=== PATIENT | male | born 1970 | race African-American/Black ===

== ENCOUNTER 2023-04-16 15:12 | Outpatient (CLI) | payer OTHER ==
--- NOTE | 2023-04-16 15:41 | Sleep Patient Instructions ---
Sleep Center Visit Summary - Patient Visit Information Reason for Visit: Compliance visit for new device, CPAP therapy - Patient Instructions Additional Instructions: You were here for follow up of CPAP therapy. You will be continued on CPAP therapy with pressure at 5-15 cmH2O. You should follow up with sleep care in 12 months. You may contact us sooner for any questions or concerns. - Clinic Information Contact: [facility] [address] [place] [id number] [email or web address] T: [phone]
--- NOTE | 2023-04-16 15:46 | SLEEP CARE CONSULTATION ---
Information from patient questionnaire entered by Estefani Shen. I have reviewed and concur with the information entered by Estefani Shen. This document represents the service I personally performed and the decisions made by me, Zoe Champion ARNP. History of Present Illness Service Date and Time: 04/16/2023 1512 Previous diagnosis: Mild, Obstructive Sleep Apnea-Hypopnea Syndrome AHI: 9.4 (in 2017) Reason for follow up: first compliance after device update Equipment type: CPAP (Resmed Airsense 11) Equipment obtained from: Other ([employer], getting supplies) Mask style: Nasal Mask brand: Resmed (Airfit [id number]) Backup mask available: Yes (old mask) Prior sleep studies: Yes Year and Where: February 2017 [place], [place] Type of Sleep Study: Home sleep study HPI additional information: BONNIE IRAHETA was diagnosed to have mild, AHI 9.4, obstructive sleep apnea-hypopnea syndrome and returned today for CPAP therapy first compliance after updating device follow-up. Sleep Study - Results Type of Sleep Study: Home sleep study Prior sleep studies: Yes Year and Where: February 2017 [place], [place] CPAP Compliance Data - Data Reviewed with Patient Average duration of nightly device use: 5 hours 18 minutes Compliance rate %: 92 (59/61 days used) Current pressure setting (cmH2O): 5-15 Average residual AHI: 1.3 Central apnea: 0.2 Obstructive apnea: 0.3 Average large leak: 12.8 L/min Subjective Missed days of use due to: reports: travel Patient concerns: reports: air blowing in eyes, mask leak noise (when needs to be changed). denies: aerophagia, mask discomfort, condensation in mask/hose, nasal congestion, dry mouth, nose, throat, epistaxis Observed to snore while using device: No Current pressure setting perceived as: comfortable On therapy, patient: reports: sleeping better, awakening more refreshed, being more awake and alert during the day, more rested overall. denies: drowsiness while driving Initial Lincoln Sleepiness Scale score: 17 (05/21/2022) Current Lincoln Sleepiness Scale score: 13 (04/16/23) Allergies and Home Medications Known drug allergies: No Drug allergies reviewed: Yes Home medication list reviewed: Yes (anxiety med (unknown name); Tums/Pepcid for reflux) Review of Systems Review of systems same as previous: Yes (Colonoscopy schdld 23 April) Physical Exam Vital signs obtained and entered by: ESTEFANI Palomino MA Blood Pressure: 130/90 (LEFT ARM) Cuff size: regular Heart Rate: 70 O2 Saturation: 96 Height: 5 ft 9 in Weight: 211 lb 9.6 oz Body Mass Index: 31.2 BMI Classification: Obese Impression and Plan 1. Obstructive Sleep Apnea-Hypopnea Syndrome, mild, with good treatment compliance and good apnea control. On CPAP therapy, the patient has better sleep quality and is more rested overall. Patient is happy with new Airsense 11. He has good compliance. Patient has significant improvement of their sleep apnea and is satisfied with current CPAP therapy. He has has some mask air leaks and air leaking in his eyes but he states that is just when he needs to change his mask cushion. He has no other issues. Patient's apnea severity and rationale for treatment to reduce apnea, improve sleep quality and reduce cardiovascular and cerebrovascular events was reviewed. I also reviewed the benefit of consistent device use of CPAP for hypertension, gastric reflux, depression and anxiety. 2. Obesity, unspecified. Currently patients BMI is 31.2. Obesity increases the risk of apnea, CPAP pressure requirements and overall health risks especially cardiovascular and diabetes. Thus patient is advised to lose weight. * Continue auto CPAP pressure at 5-15 cmH2O * Notify me if snoring with mask or feeling that the pressure is too much or too little * Attempt to lose weight * Call this office if any problems using CPAP * Return for follow up in 1 year, or sooner if concerns arise Counseling Topics: Spare mask, Weight loss health impact Visit Type: In Office Time Spent with Patient (minutes): 24 Provider Statement: I spent 100% of the Face to Face Visit with the patient with greater than 50% spent counseling the patient and coordination of care.
[2023-04-16 15:48] VITALS: BP 130/90
== END 2023-04-16 15:13 | disposition home or self-care (01) ==
LOC: SC 15:12
PROVIDERS: ATTEND Nurse Practitioner Family
DX: G47.33 Obstructive sleep apnea (adult) (pediatric) (principal); E66.9 Obesity, unspecified; Z68.31 Body mass index [BMI] 31.0-31.9, adult
CPT/HCPCS: 99212; 99213

== ENCOUNTER 2023-10-21 16:54 | Outpatient (CLI) | payer OTHER ==
--- NOTE | 2023-10-22 10:50 | MRI Report ---
PROCEDURE: KNEE WO - RT INDICATIONS: PAIN IN RIGHT KNEE TECHNIQUE: Noncontrast sagittal PD fast spin echo and T2 fast spin echo with fat saturation, sagittal 3-D spoile d GE with fat saturation; coronal T1 spin echo and PD fast spin echo with fat saturation, and axial P D fast spin echo with fat saturation through the knee. COMPARISON: None. FINDINGS: Image quality: Excellent. Anterior cruciate ligament: Intact. Posterior cruciate ligament: Intact. Medial collateral ligament: There is mild edema surrounding the proximal medial collateral ligament and the ligament appears mildly thickened. Lateral collateral ligament: Intact. Medial meniscus: Focal complex tearing of the medial meniscus is seen at the junction of the posteri or horn and body with a shallow radial component and a horizontal oblique component extending to the inner third tibial articular surface as well as a small meniscal flap extending into the medial tibia l gutter. Lateral meniscus: Intact. Medial and lateral tendons: The semimembranosus tendon insertions appear intact. Visualized portion s of the pes anserinus tendons appear normal. The popliteus tendon appears intact. Iliotibial band appears normal. Anterior structures: The patellar tendon and the distal quadriceps tendon appear intact. No patellar subluxation. No femoral trochlear dysplasia or ventral trochlear prominence. No edema in the infra patellar fat pad. Bones: Mild osseous edema at the medial tibial plateau is most likely reactive to the adjacent menis jordin tear versus less likely an osseous contusion or secondary to degenerative changes. Medial femorotibial cartilage: Mild partial thickness cartilage cartilage thinning in the weightbear ing portion of the medial femorotibial compartment. Mild subchondral edema is seen posteriorly. Small marginal osteophytes. Lateral femorotibial cartilage: Mild surface cartilage irregularity and small marginal osteophytes. Patellofemoral cartilage: Full-thickness cartilage loss is seen at the lateral patellar facet with m ild subchondral edema and small marginal osteophytes. There is high-grade cartilage loss at the troch lear groove/lateral femoral trochlea. Soft tissues: There is a small joint effusion. A 3 mm intra-articular loose body is seen posterior i ntercondylar notch. A thin lobular ganglion cyst is seen extending proximally from the posterior medi al joint capsule measuring approximately 4.5 x 1.2 x 1.2 cm, there is a superior extension of the sma ll medial popliteal cyst.. The musculature surrounding the knee is normal in bulk. IMPRESSION: 1.Complex tearing of the medial meniscus at the junction of the posterior horn and body with shallow radial and horizontal oblique components as well as a small inferiorly displaced meniscal flap extend ing into the medial tibial gutter. Mild adjacent osseous edema is most likely reactive. 2.Grade 1 sprain of the proximal medial collateral ligament. 3.Full-thickness cartilage loss at the anterior compartment at the lateral patellar facet. There is m ild grade II chondromalacia in the medial and lateral femorotibial compartments. 4.Small joint effusion with a 3 mm intra-articular loose body posteriorly. 5.Small medial popliteal cyst. Lobular ganglion cyst is seen along the posterior medial aspect of the vastus medialis muscle adjacent to the adductor jose insertion versus superior extension of the me dial popliteal cyst. Reviewed by: Domenico Byrd MD on 10/22/2023 10:48 AM PST Approved by: Domenico Byrd MD on 10/22/2023 10:48 AM PST Station ID: [id number]
== END 2023-10-21 16:55 | disposition home or self-care (01) ==
LOC: DI 16:54
PROVIDERS: ATTEND Family Medicine
DX: S83.231A Complex tear of medial meniscus, current injury, right knee, initial encounter (principal); S83.411A Sprain of medial collateral ligament of right knee, initial encounter; M94.261 Chondromalacia, right knee; M25.461 Effusion, right knee; M71.21 Synovial cyst of popliteal space [Baker], right knee

== ENCOUNTER 2024-04-01 15:24 | Emergency (ER) | payer OTHER ==
--- NOTE | 2024-04-01 15:34 | ED Physician Documentation ---
PD HPI BACK PAIN - Stated complaint Stated Complaint: BACK PX - Chief complaint Chief Complaint: Back Pain - Additional information Additional information: 54-year-old male with history of hypertension, urinary retention, anxiety presents emergency department for lower back pain. Patient says that he woke last night with sudden onset lower back pain mostly to the right flank area. He also reports that he is been having some fevers and chills at home unsure how high his fever has been. No difficulty voiding no diarrhea no nausea at this time but he said that he was having a couple episodes of nausea no emesis at home. No recent injury or falls to cause the back pain. PD PAST MEDICAL HISTORY - Past Medical History Past Medical History: Yes Cardiovascular: Hypertension Psych: Anxiety - Past Surgical History Past Surgical History: Yes Ortho: Other HEENT: Other - Present Medications Home Medications: Ambulatory Orders Medication Instructions Recorded Confirmed Calcium Carbonate [Tums (Calcium See Rx Instructions .ROUTE .COMPLEX 04/16/23 04/01/24 Carbonate 500mg)] Famotidine [Pepcid AC] See Rx Instructions .ROUTE .COMPLEX 04/16/23 04/16/23 Lisinopril [Zestril] 1 tab PO DAILY 04/01/24 04/01/24 Omeprazole 1 tab PO PRN PRN 04/01/24 04/01/24 Sildenafil Citrate 1 tab PO DAILY 04/01/24 04/01/24 - Allergies Allergies/Adverse Reactions: Allergies Allergy/AdvReac Type Severity Reaction Status Date / Time No Known Drug Allergies Allergy Verified 04/01/24 15:26 - Social History Does the pt smoke?: No Smoking Status: Never smoker Does the pt drink ETOH?: No Does the pt have substance abuse?: No - Immunizations Immunizations are current?: Yes - POLST Patient has POLST: No PD ED PE NORMAL - Vitals Vital signs reviewed: Yes - General General: Alert and oriented X 3, No acute distress, Well developed/nourished - Neck Neck: No bony TTP - Cardiac Cardiac: RRR, No murmur, No gallop, Strong equal pulses - Respiratory Respiratory: No respiratory distress, Clear bilaterally - Abdomen Abdomen: Normal bowel sounds, Soft, Non tender - Back Back: No CVA TTP - Free text exam Free text exam: Neck and back are without deformity, external skin changes, or signs of trauma. Curvature of the cervical, thoracic, and lumbar spine are within normal limits. Bony features of the shoulders and hips are of equal height bilaterally. Posture is upright, gait is smooth, steady, and within normal limits. No tenderness noted on palpation of the spinous processes. Spinous processes are midline. Cervical, thoracic, and lumbar paraspinal muscles are not tender and are without spasm. No discomfort is noted with flexion, extension, and [id number] rotation of the cervical spine, full range of motion is noted. Full range of motion including flexion, extension, and [id number] rotation of the thoracic and lumbar spine are noted and without discomfort. Straight leg raise test is negative bilaterally. Sensation to the upper and lower extremities is normal bilaterally. No clonus is noted. Appeals Referee strength is normal bilaterally. Dorsi/plantar flexion is normal bilaterally. Results - Vitals Vitals: Vital Signs - 24 hr 04/01/24 04/01/24 15:26 19:02 Temperature 37.1 C Heart Rate 90 74 Respiratory 16 16 Rate Blood Pressure 160/80 H 174/101 H O2 Saturation 98 100 Oxygen O2 Source Room air - Labs Labs: Laboratory Tests 04/01/24 04/01/24 04/01/24 15:35 15:35 15:53 WBC 4.1 L RBC 4.81 Hgb 13.3 L Hct 39.9 L MCV 83.0 MCH 27.7 MCHC 33.3 RDW 12.6 Plt Count 127 L MPV 11.6 H Neut # (Auto) 3.0 Lymph # (Auto) 0.6 L Newberry # (Auto) 0.5 Eos # (Auto) 0.0 Baso # (Auto) 0.0 Absolute Nucleated RBC 0.00 Nucleated RBC % 0.0 Sodium Potassium Chloride Carbon Dioxide Anion Gap BUN Creatinine Estimated GFR (MDRD) Glucose Calcium Magnesium Total Bilirubin AST ALT Alkaline Phosphatase Total Protein Albumin Globulin Albumin/Globulin Ratio Lipase Urine Color YELLOW Urine Clarity CLEAR Urine pH 7.5 Ur Specific Mcrae 1.020 Urine Protein NEGATIVE Urine Glucose (UA) NEGATIVE Urine Ketones NEGATIVE Urine Occult Blood NEGATIVE Urine Nitrite NEGATIVE Urine Bilirubin NEGATIVE Urine Urobilinogen 0.2 (NORMAL) Ur Leukocyte Esterase NEGATIVE Ur Microscopic Review NOT INDICATED Urine Culture Comments NOT INDICATED Nasal Adenovirus (PCR) NOT DETECTED Nasal B. parapertussis DNA (PCR) NOT DETECTED Nasal Coronavir 229E PCR NOT DETECTED Nasal Coronavir HKU1 PCR NOT DETECTED Nasal Coronavir NL63 PCR NOT DETECTED Nasal Coronavir OC43 PCR NOT DETECTED Nasal Enterovir/Rhinovir PCR NOT DETECTED Nasal Influenza B PCR NOT DETECTED Nasal Influenza A PCR NOT DETECTED Nasal Parainfluen 1 PCR NOT DETECTED Nasal Parainfluen 2 PCR NOT DETECTED Nasal Parainfluen 3 PCR NOT DETECTED Nasal Parainfluen 4 PCR NOT DETECTED Nasal RSV (PCR) NOT DETECTED Nasal B.pertussis DNA PCR NOT DETECTED Nasal C.pneumoniae (PCR) NOT DETECTED Roosevelt Human Metapneumo PCR NOT DETECTED Nasal M.pneumoniae (PCR) NOT DETECTED Nasal SARS-CoV-2 (PCR) DETECTED A 04/01/24 15:53 WBC RBC Hgb Hct MCV MCH MCHC RDW Plt Count MPV Neut # (Auto) Lymph # (Auto) Newberry # (Auto) Eos # (Auto) Baso # (Auto) Absolute Nucleated RBC Nucleated RBC % Sodium 137 Potassium 3.7 Chloride 101 Carbon Dioxide 31 Anion Gap 5.0 L BUN 11 Creatinine 1.0 Estimated GFR (MDRD) 94 Glucose 106 H Calcium 9.5 Magnesium 1.6 L Total Bilirubin 0.5 AST 56 H ALT 42 Alkaline Phosphatase 60 Total Protein 7.1 Albumin 4.5 Globulin 2.6 Albumin/Globulin Ratio 1.7 Lipase 54 Urine Color Urine Clarity Urine pH Ur Specific Mcrae Urine Protein Urine Glucose (UA) Urine Ketones Urine Occult Blood Urine Nitrite Urine Bilirubin Urine Urobilinogen Ur Leukocyte Esterase Ur Microscopic Review Urine Culture Comments Nasal Adenovirus (PCR) Nasal B. parapertussis DNA (PCR) Nasal Coronavir 229E PCR Nasal Coronavir HKU1 PCR Nasal Coronavir NL63 PCR Nasal Coronavir OC43 PCR Nasal Enterovir/Rhinovir PCR Nasal Influenza B PCR Nasal Influenza A PCR Nasal Parainfluen 1 PCR Nasal Parainfluen 2 PCR Nasal Parainfluen 3 PCR Nasal Parainfluen 4 PCR Nasal RSV (PCR) Nasal B.pertussis DNA PCR Nasal C.pneumoniae (PCR) Roosevelt Human Metapneumo PCR Nasal M.pneumoniae (PCR) Nasal SARS-CoV-2 (PCR) - Rads (name of study) CT KUB Relevant Findings:: Final report received, EMP independent interpretation of test, Other (No hydronephrosis or obstructing renal stone distended bladder) PD Medical Decision Making - ED course ED course: 54-year-old male presents emergency room for right flank pain. Labs are complete for further evaluation as I was originally concerned about some sort of kidney obstruction or kidney failure. Mild leukopenia 4.1 hemoglobin 13.3, no electrolyte abnormalities urinalysis is unremarkable CT scan does not show any hydronephrosis or obstruction it does show distended bladder but patient says that he is chronically distended and has urinary retention. He also tested positive for COVID-19 which is why I believe patient is experiencing fevers chills and bodyaches. No further workup indicated at this time Tylenol given for pain IV fluids given and told to follow-up with primary care provider as needed a urology referral was also given for the patient to help with his urinary retention. Return precautions given patient safe for discharge. Departure - Departure Disposition: Home, Self Care Clinical Impression: COVID-19, Urinary retention Instructions: COVID-19 [facility] Department Statement, Flu and Cold: Nutrition, Prevention and Treatment Tips Follow-Up: Tim Munson MD [Provider Admit Priv/Credential] - Comments: Thank you for trusting us with your care. We have found that you have tested positive for COVID-19. Go home get plenty of rest drink lots of fluids Tylenol ibuprofen for pain and discomfort wear a mask if you are out in public for at least 7 days. Please come back to the emergency department if you are having any worsening symptoms, shortness of breath, chest pain or any other concerning emergent symptoms. Incidentally we have found that your CT scan shows quite enlarged bladder I think that you need to follow-up with your primary care provider for urology referral as soon as possible for further evaluation of your urinary retention. I have included the urologist contact information who is here on the [place] please call him first thing Wednesday morning to make an appointment. Discharge Date/Time: 04/01/24 19:03
[2024-04-01 15:51] LABS: BILIRUBIN,URINE NEGATIVE (NEGATIVE); GLUCOSE, URINE (UA) NEGATIVE (NEGATIVE); KETONES,URINE (UA) NEGATIVE (NEGATIVE); LEUKOCYTE ESTERASE, URINE NEGATIVE (NEGATIVE); NITRITE,URINE NEGATIVE (NEGATIVE); OCCULT BLOOD,URINE NEGATIVE (NEGATIVE); PH,URINE 7.5 PH (5.0-7.5); PROTEIN,URINE NEGATIVE (NEGATIVE); UROBILINOGEN,URINE 0.2 (NORMAL) E.U./dL (NORMAL)
[2024-04-01 15:52] LABS: CLARITY,URINE CLEAR (CLEAR)
[2024-04-01 16:05] LABS: HCT - HEMATOCRIT 39.9 % (42.0-52.0); HGB - HEMOGLOBIN 13.3 g/dL (14.0-18.0); LYMPHOCYTES # (AUTO) 0.6 10^3/uL (1.5-3.5); LYMPHOCYTES % (AUTO) 13.8 %; MEAN CORPUSCULAR HEMOGLOBIN 27.7 pg (27.0-31.0); MEAN CORPUSCULAR HGB CONC 33.3 g/dL (32.0-36.0); MEAN PLATELET VOLUME 11.6 fL (7.4-11.4); MONOCYTES # (AUTO) 0.5 10^3/uL (0.0-1.0); MONOCYTES % (AUTO) 12.8 %; NEUTROPHILS % (AUTO) 73.2 %; PLT - PLATELET COUNT 127 10^3/uL (130-450); RED BLOOD COUNT 4.81 10^6/uL (4.70-6.10); RED CELL DISTRIBUTION WIDTH 12.6 % (12.0-15.0); WHITE BLOOD COUNT 4.1 x10^3/uL (4.8-10.8)
[2024-04-01 16:21] LABS: ALBUMIN 4.5 g/dL (3.2-5.5); ALBUMIN/GLOBULIN RATIO 1.7 (1.0-2.2); BILIRUBIN,TOTAL 0.5 mg/dL (0.2-1.0); CALCIUM 9.5 mg/dL (8.5-10.3); MAGNESIUM 1.6 mg/dL (1.7-2.3); POTASSIUM 3.7 mmol/L (3.5-4.5); TOTAL PROTEIN 7.1 g/dL (6.4-8.9)
[2024-04-01] MEDS: KETOROLAC 30 MG/ML VIAL IVP STA (16:43)
[2024-04-01] MEDS: SODIUM CHLORIDE 0.9% 1,000 ML IV ONE (16:48)
[2024-04-01 17:27] LABS: B. PARAPERTUSSIS- RESP PCR PAN NOT DETECTED; B. PERTUSSIS- RESP PCR PANEL NOT DETECTED; C. PNEUMONIAE- RESP PCR PANEL NOT DETECTED; CORONAVIRUS 229E-RESP PCR NOT DETECTED; CORONAVIRUS HKU1-RESP PCR NOT DETECTED; CORONAVIRUS NL63-RESP PCR NOT DETECTED; CORONAVIRUS OC43-RESP PCR NOT DETECTED; HUMAN METAPNEUMOVIRUS NOT DETECTED; INFLUENZA A- RESP PCR PANEL NOT DETECTED; INFLUENZA B - RESP PCR PANEL NOT DETECTED; M. PNEUMONIAE- RESP PCR PANEL NOT DETECTED; PARAINFLUENZA VIRUS 1 NOT DETECTED; PARAINFLUENZA VIRUS 2 NOT DETECTED; PARAINFLUENZA VIRUS 3 NOT DETECTED; PARAINFLUENZA VIRUS 4 NOT DETECTED; RHINOVIRUS/ENTEROVIRUS NOT DETECTED; RSV- RESP PCR PANEL NOT DETECTED
[2024-04-01 17:29] LABS: SARS-CoV-2 -RESP PCR PANEL DETECTED
--- NOTE | 2024-04-01 18:12 | CT Report ---
PROCEDURE: KUB INDICATIONS: right flank pain TECHNIQUE: A CT scan of the abdomen and pelvis was performed without the use of intravenous contrast. Images we re recorded and evaluated at appropriate window settings. Reformats: coronal and sagittal. For radiat ion dose reduction, the following was used: automated exposure control, adjustment of mA and/or kV ac cording to patient size. COMPARISON: None. FINDINGS: Image quality: Diagnostic. Lower chest: A small hiatal hernia is incidentally noted. Liver: No contour-deforming mass. Gallbladder: Within normal limits. Biliary tree: No intrahepatic or extrahepatic dilation, accounting for age. Spleen: No splenomegaly. Pancreas: No pancreatic ductal dilation. Adrenals: No adrenal nodule. Kidneys and ureters: No hydronephrosis. No contour-deforming mass. Stomach, bowel and peritoneum: No gastric or small bowel dilation. No abnormal wall thickening. No pa thologic free fluid. A normal appendix is seen. Lymph nodes: No central or retroperitoneal adenopathy. Vessels: No infrarenal aortic aneurysm. Reproductive organs: Unremarkable. Bladder: The bladder is distended, measuring 14 cm craniocaudal. Pelvic lymph nodes: No adenopathy by size criteria. Bones: No aggressive osseous abnormality. Other: A mild fat-containing periumbilical hernia is seen. IMPRESSION: No hydronephrosis or obstructing renal stone. Distended urinary bladder, measuring 14 cm craniocaudal. Please correlate with bladder outlet obstruc tion. Additional findings: Small hiatal hernia Fat-containing periumbilical hernia Normal appendix Reviewed by: Zeke Vang MD on 04/01/2024 5:11 PM ABEL Approved by: Zeke Vang MD on 04/01/2024 5:11 PM [id number] Station ID: [id number]
[2024-04-01 19:08] VITALS: BP 174/101; O2SAT 100
== END 2024-04-01 19:03 | disposition home or self-care (01) ==
LOC: ED 15:24
DX: R33.9 Retention of urine, unspecified (principal); U07.1 COVID-19
CPT/HCPCS: 36415; 80053; 81001; 81003; 83690; 83735; 85025; 87086; 87633; 96374; 99284

== ENCOUNTER 2024-05-10 08:56 | Outpatient (CLI) | payer OTHER ==
--- NOTE | 2024-05-10 09:32 | Sleep Patient Instructions ---
Sleep Center Visit Summary - Patient Visit Information Reason for Visit: Annual follow-up - Patient Instructions Additional Instructions: You will continue with CPAP therapy with pressure set at 5-15 cmH2O. A supply prescription will be sent to your new CPAP supplier. We encourage you to continue to try to lose weight. Please follow up with the sleep care office in 1 year. - Clinic Information Contact: [facility] [address] [place] [address] [email or web address] T: [phone]
[2024-05-10 09:34] VITALS: BP 166/103; O2SAT 100
--- NOTE | 2024-05-10 09:34 | SLEEP CARE CONSULTATION ---
Information from patient questionnaire entered by Estefani Shen. I have reviewed and concur with the information entered by Estefani Shen. This document represents the service I personally performed and the decisions made by me, Zoe Champion ARNP. History of Present Illness Service Date and Time: 05/10/2024 0856 Previous diagnosis: Mild, Obstructive Sleep Apnea-Hypopnea Syndrome AHI: 9.4 (in 2017) Reason for follow up: annual (LAST SEEN 03/2023) Equipment type: CPAP (Resmed Airsense 11, s/u 02/14/23, NEED MACHINE) Equipment obtained from: Other ([employer], hard to get supplies) Mask style: Full face Backup mask available: Yes Last cushion change: 1 week Prior sleep studies: Yes Year and Where: February 2017 [place], [place] Type of Sleep Study: Home sleep study HPI additional information: BONNIE IRAHETA was diagnosed to have mild, AHI 9.4, obstructive sleep apnea-hypopnea syndrome and returned today for CPAP therapy annual follow-up. Sleep Study - Results Type of Sleep Study: Home sleep study Prior sleep studies: Yes Year and Where: February 2017 [place], [place] CPAP Compliance Data - Data Reviewed with Patient Average duration of nightly device use: 5 HRS 17 MINS Compliance rate %: 73 (05/10/23-05/08/24; 308/365 days used) Current pressure setting (cmH2O): 5-15 Average residual AHI: 2.1 Central apnea: 0.1 Obstructive apnea: 0.8 Hypopnea: 0.7 Average large leak: 11.4 L/min Subjective Missed days of use due to: reports: mask issues, travel Patient concerns: reports: air blowing in eyes, mask leak noise, dry mouth, nose, throat. denies: aerophagia, mask discomfort, condensation in mask/hose, nasal congestion, epistaxis Observed to snore while using device: No Current pressure setting perceived as: comfortable On therapy, patient: reports: sleeping better, awakening more refreshed, being more awake and alert during the day, more rested overall. denies: drowsiness while driving Initial [place] Sleepiness Scale score: 17 (05/21/2022) Current [place] Sleepiness Scale score: 13 (05/10/24) Allergies and Home Medications Known drug allergies: No Drug allergies reviewed: Yes Home medication list reviewed: Yes (as listed in EMR) Allergy and home medication list: Allergies No Known Drug Allergies Allergy (Verified 05/08/24 09:10) Review of Systems Review of systems same as previous: No (CATARACT SURGERY AND STEROID SHOTS IN RIGHT KNEE) Physical Exam Vital signs obtained and entered by: ESTEFANI Palomino MA Blood Pressure: 166/103 (LEFT ARM) Cuff size: long Heart Rate: 59 O2 Saturation: 100 Height: 5 ft 9 in Weight: 211 lb Body Mass Index: 31.1 BMI Classification: Obese Impression and Plan 1. Obstructive Sleep Apnea-Hypopnea Syndrome, mild, with good treatment compliance and good apnea control. On CPAP therapy, the patient has better sleep quality and is more rested overall. He is not happy with current supplier because he cannot get supplies unless he calls them and they have sent the wrong supplies. Patient was notified that another DME can be used. I will have my merchandising coordinator inform of DME options. A DWO prescription will then be made. Patient advised to contact this office if further supply problems. Patient's apnea severity and rationale for treatment to reduce apnea, improve sleep quality and reduce cardiovascular and cerebrovascular events was reviewed. I also reviewed the benefit of consistent device use of CPAP for hypertension, gastric reflux, depression/anxiety. 2. Obesity, unspecified. Currently patients BMI is 31.1. Obesity increases the risk of apnea, CPAP pressure requirements and overall health risks especially cardiovascular and diabetes. Thus patient is advised to lose weight. * Continue auto CPAP pressure at 5-15 cmH2O * Transfer DME * Update supply prescription * Notify me if snoring with mask or feeling that the pressure is too much or too little * Attempt to lose weight * Call this office if any problems using CPAP * Return for follow up in 12 months, or sooner if concerns arise Counseling Topics: Spare mask, Weight loss health impact Prescriptions: Device supplies (with transfer DME) Follow up with Sleep Care in: 1 year Visit Type: In Office Time Spent with Patient (minutes): 23 Provider Statement: I spent 100% of the Face to Face Visit with the patient with greater than 50% spent counseling the patient and coordination of care.
== END 2024-05-10 08:57 | disposition home or self-care (01) ==
LOC: SC 08:56
PROVIDERS: ATTEND Nurse Practitioner Family
DX: G47.33 Obstructive sleep apnea (adult) (pediatric) (principal); E66.9 Obesity, unspecified; Z68.31 Body mass index [BMI] 31.0-31.9, adult
CPT/HCPCS: 99212; 99213